=== PATIENT | male | born 1990 | race African-American/Black ===

== ENCOUNTER 2018-01-21 19:18 | Emergency (ER) | payer SELFPAY ==
[~2018-01-21 19:18] MED LIST: AMOX875T PO; IBUP800T23 PO; TRAM50 PO
== END 2018-01-21 20:16 | disposition left against medical advice (07) ==
LOC: NED 19:18
DX: Z03.89 Encounter for observation for other suspected diseases and conditions ruled out (principal)
CPT/HCPCS: 99281